=== PATIENT | male | born 1965 | race Caucasian/White ===

== ENCOUNTER → 2024-01-07 09:30 | Outpatient (REF) | payer OTHER, SELFPAY | LOC: HWRAD 09:30 | PROVIDERS: ATTENDING PHYSICIAN Nurse Practitioner | DX: E78.5 Hyperlipidemia, unspecified (principal); Z82.49 Family history of ischemic heart disease and other diseases of the circulatory system | CPT/HCPCS: 75571 ==

== ENCOUNTER → 2024-01-26 13:27 | Outpatient (REF) | payer OTHER, SELFPAY | LOC: HWRAD 13:27 | PROVIDERS: ATTENDING PHYSICIAN Internal Medicine Critical Care Medicine; FAMILY PHYSICIAN Nurse Practitioner | DX: R91.8 Other nonspecific abnormal finding of lung field (principal) | CPT/HCPCS: 71250 ==

== ENCOUNTER 2024-02-02 06:30 | Day surgery (SDC) | payer OTHER, SELFPAY ==
[2024-01-26 07:33] VITALS: BMI 26.9
[2024-01-26 08:40] LABS: Hematocrit 43.6 % (39.0-52.0); Hemoglobin 15.8 g/dL (13.0-18.0); Mean Corp Hgb Conc. 36.2 g/dL (33.0-37.0); Mean Corpuscular Hgb 31.5 pg (27.0-31.0); Mean Corpuscular Volume 86.9 fL (80.0-94.0); Mean Platelet Volume 9.7 fL (7.4-10.4); Platelet Count 185 10^3/uL (130-400); Red Blood Cell Count 5.02 10^6/uL (4.70-6.10); Red Cell Dist. Width 12.9 % (11.5-14.5); White Blood Cell Count 5.1 10^3/uL (4.8-10.8)
[2024-01-26 09:04] LABS: APTT 29.6 Sec (23.4-35.0)
[2024-01-26 09:11] LABS: Blood Urea Nitrogen 29 mg/dl (9-20); Calcium 9.4 mg/dl (8.4-10.2); Carbon Dioxide 26 mmol/L (22-30); Chloride 105 mmol/L (98-107); Estimated Creatinine Clearance 94 ml/min; Glucose 94 mg/dl (70-99); Potassium 4.1 mmol/L (3.5-5.1); Sodium 141 mmol/L (135-145); eGFR > 60.00
[2024-02-02] VITALS (10 sets, daily range): BP systolic 105–141; BP diastolic 65–83; BMI 26.9; BMI 27.1
== END 2024-02-02 14:04 | disposition home or self-care (01) ==
LOC: GI 06:30
PROVIDERS: ATTENDING PHYSICIAN Internal Medicine Critical Care Medicine; FAMILY PHYSICIAN Nurse Practitioner
DX: R91.8 Other nonspecific abnormal finding of lung field (principal); R93.89 Abnormal findings on diagnostic imaging of other specified body structures; Z87.891 Personal history of nicotine dependence
CPT/HCPCS: 31653; 31628; 31624; 31623; 31627; 31654; 31645; 88172; 88173; 88305; 36415; 71045; 76000; 80048; 85027; 85610; 85730; 87015; 87070; 87102; 87116; 87205; 88112; 88177; 88333; 93005; C1887

== ENCOUNTER 2024-06-23 07:53 | Inpatient (IN) | payer OTHER, SELFPAY ==
[2024-06-14 08:29] VITALS: BMI 27.9
[2024-06-14 09:02] LABS: Urine Albumin Negative (Neg - Trace); Urine Bilirubin Negative (Negative); Urine Character Clear (Clear); Urine Color Yellow; Urine Glucose Negative (Negative); Urine Ketone Negative (Negative); Urine Leukocyte Negative (Negative); Urine Nitrite Negative (Negative); Urine Occult Blood Negative (Negative); Urine Specific Gravity 1.015 (<1.030); Urine Urobilinogen Negative (Neg - 1+)
[2024-06-14 09:15] LABS: INR 1.08; PT 13.9 Sec (11.4-14.6)
[2024-06-14 09:22] LABS: % Basophils 0.8 % (0-2); % Eosinophils 2.9 % (0-6); % Immature Granulocytes 0.8 % (0-0.5); % Lymphocytes 33.5 % (20.5-51.1); % Monocytes 9.1 % (1.7-9.3); % Neutrophils 52.9 % (42.2-75.2); Absolute Eosinophils 0.2 10^3/uL (0-0.7); Absolute Lymphocytes 1.8 10^3/uL (1.2-3.4); Absolute Monocytes 0.5 10^3/uL (0.1-0.6); Absolute Neutrophils 2.8 10^3/uL (1.4-6.5); Hematocrit 42.9 % (39.0-52.0); Hemoglobin 15.8 g/dL (13.0-18.0); Mean Corp Hgb Conc. 36.8 g/dL (33.0-37.0); Mean Corpuscular Volume 86.8 fL (80.0-94.0); Mean Platelet Volume 9.9 fL (7.4-10.4); Nucleated Red Blood Cells % 0 % (-); Platelet Count 181 10^3/uL (130-400); Red Blood Cell Count 4.94 10^6/uL (4.70-6.10); White Blood Cell Count 5.3 10^3/uL (4.8-10.8)
--- NOTE | 2024-06-14 09:58 | CM ---
Chart reviewed. Met with the patient and his in PAT. Reviewed preoperative and postoperative instructions and restrictions, along with showering guidelines. Gave patient 2 soaps. 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 Patient is agreeable to a home visit by CT Transitional RN. Plan is for the patient to return home with CT Transitional RN.
[2024-06-14 11:14] LABS: ALT (SGPT) 34 U/L (0-50); AST (SGOT) 33 U/L (17-59); Albumin 4.6 g/dl (3.5-5.0); Alkaline Phosphatase 95 U/L (38-126); Blood Urea Nitrogen 18 mg/dl (9-20); Calcium 9.4 mg/dl (8.4-10.2); Carbon Dioxide 19 mmol/L (22-30); Chloride 105 mmol/L (98-107); Direct Bilirubin 0.2 mg/dl (0.0-0.4); Estimated Creatinine Clearance 91 ml/min; Glucose 108 mg/dl (70-99); Potassium 4.7 mmol/L (3.5-5.1); Sodium 139 mmol/L (135-145); Total Bilirubin 0.7 mg/dl (0.2-1.3); Total Protein 7.1 g/dl (6.3-8.2); eGFR > 60.00
[2024-06-14 12:26] LABS: Glycohemoglobin (HgbA1c) 4.9 % (4.0-5.6)
[2024-06-23] VITALS (14 sets, daily range): BP systolic 115–133; BP diastolic 75–88; BMI 27.1
--- NOTE | 2024-06-23 10:24 | CM ---
Patient in OR today for planned CT Surgery.
Reviewed initial assessment. Pt. resides in a split level home with spouse. Pt. is functionally indep. w/ ADLs, mobility without the use of any assisted device.
Antic. DC to home w/ CT Transitional Care RN.
CM to follow.
--- NOTE | 2024-06-23 10:50 | W.CVOR.SURPR ---
CVOR Surgeon Immed Pre Op
-
I have examined this patient prior to performance of the scheduled procedure.
The patient's condition is unchanged from the time of the dictated/written History and
Physical and the patient is able to undergo the scheduled procedure.
RATs RML biopsy if I can get to the central nodule. Otherwise will obtain biopsies of other nodules and send for frozen. After discussion with IR Dr. Dailey, we ultimately decided to not pursue IR needle localization as the central nodule is close
to multiple blood vessels, and biopsy of this central nodule would likely result in a right middle lobectomy. I will obtain samples of any obvious nodules in the RUL or RLL.
[2024-06-23] MEDS: ANCEF IV (11:20)
--- NOTE | 2024-06-23 13:05 | W.PN.CT.SURG ---
CT Surgery Operative Note
-
THORACIC SURGERY OPERATIVE REPORT
Preoperative Diagnosis: Multiple bilateral pulmonary nodules incidentally found
Postoperative Diagnosis: Same, plus pleural implants, pericardial fat implants, diaphragmatic implants
Procedure(s) Performed:
1. Robotic assisted thoracic surgery [RATS] diagnostic wedge resection of the right upper, right middle, and right lower lobes
2. Additional pleural implant biopsy, additional pericardial fat implant biopsy
3. Intercostal nerve block with mepivacaine mixture into spaces 5, 6, 7, 8 with 5cc/each
4. Cryonerve ablation to intercostal nerve spaces 5, 6, 7, 8 with 2mins of freeze each
5. Intraoperative frozen section
Date of Surgery: 06/24/2024
Comorbidities:
1. History of a arachnoid cyst
2. Multiple pulmonary nodules
3. Possible occupational exposure to dust, animal droppings, animal feathers, etc.
4. Family history of prostate cancer
5. Cigar smoking 4-5 times a month for a total of 30 years
Attending Surgeon: Gregorio Pineda MD, MS
Assistants: Gregorio Carr PA-C (present and necessary to cosmetic sales assistant, exchanging robotic instruments, retraction, suction, exposure, suture management, and wound closure under my direction)
Anesthesiology: Carlos Pearson MD and Ya Mason CRNA
Scrub and Circulating RNs: Xenia Lopez RN, Coral Barone RN
Anesthesia: Dual Lumen GETA
EBL: 20 cc
Products: None
Indication(s) for Procedures: This is a 59-year-old male with bilateral pulmonary nodules seen on calcium scoring CT scan in December 2023. He had a slightly larger nodule that was 1.4 cm in the right middle lobe he also had bilateral mediastinal
lymphadenopathy is concerning. From a smoking history of 4 to 5 cigars a month for 30 years. PET/CT imaging was concerning for metastatic disease as there was delayed phase FDG avidity. He also had some mediastinal node uptake and activity that
was concerning. He was referred here for diagnostic wedge resection of the right middle lobe nodule that was deep in the central portion and hard to get to.
Findings: Diffuse and innumerable implants on the right upper, middle, and lower lobes. Additional implants were found onto the parietal pleura and mediastinal fat as well as the diaphragm. Wedge resection was performed of all 3 lobes and sent off
for pathology. Frozen section the operating room was inconclusive for any cancer. Additional implants seen in the pleura was taken for sample as well as any pericardial fat implants. There is no air leak at the conclusion of the case and no loss
of tidal volume.
Specimen(s):
Wedge resection of the right upper, middle, and lower lobes
Pericardial fat sample, pleural implant sample
Description of Procedure: The patient was taken to the operating room. Induction via general anesthesia with endotracheal intubation was performed and peripheral venous access and arterial monitoring were inserted. Their identity and procedure to be
performed were verified and they were positioned with the right side up on the operating table. The patient was then prepped and draped in a sterile fashion. A preoperative time-out was performed with all members of the team present. A Veress
needle was used to insufflate the chest after isolating the lung. An 8 mm port was placed in the midaxillary line at approximately the eighth intercostal space and confirmed to be intrathoracic without significant pulmonary injury. The chest was
surveyed for any evidence of metastatic disease. Patient tolerate insufflation without complication. 1 additional 12 mm trocars were placed on anterior side along with 2 additional 8 mm trocars towards the patient's back. A 12 mm surveyor's assistant port
was placed in the 11th intercostal space above the insertion of the diaphragm. An intercostal nerve block was performed at intercostal spaces 5 through 8.
The thoracic cavity was inspected for evidence of metastatic disease. There were multiple implants that were innumerable mostly on the upper, middle and lower lobes of the lung, few implants were also seen on the parietal pleura and along the
pericardial fat and diaphragm. Wedge resections were performed of the lower, middle, and upper lobes using green load staple fires. Any implants on the pericardial fat and pleura were also taken for frozen section after being extracted from the
chest cavity. Frozen section came back as inconclusive at this time, possible inflammatory, possible scarring but no elaine cancer cells were seen. CoSeal was used to coat all 3 staple lines. After confirming hemostasis, the lung was fully
inflated and all ports were removed. Incisions were closed in 3 layers including the fascia, dermal, and epidermis. Additional local anesthesia was injected into all incision sites. The skin wound was cleansed and sealed with Dermabond glue.
All instrument, sponge, and needle counts were confirmed to be correct x 2 at the end of the operation. The patient was transferred to the cardiac intensive care unit extubated in critical but stable condition.
I, Dr. Gregorio Pineda, was present, scrubbed for, and performed all critical elements of this procedure.
Gregorio Pineda MD, MS
Cardiothoracic Surgeon
[facility]
This operative dictation was created using the [employer] dictation system. Please excuse any grammatical, typographical, or 'sound alike' errors
[2024-06-23] MEDS: DILAUDID 0.25 MG IV (13:18)
--- NOTE | 2024-06-23 13:20 | W.PN.CT.PHOT ---
JENNIFER Photos
-
Photos:
[2024-06-23] MEDS: DILAUDID 0.5 MG IV ×3 (13:29→19:49)
--- NOTE | 2024-06-23 13:45 | PTCARENOTE ---
Report received from pacu. Patient received status post right VATS etc multiple nodules bx/lymph node bx. Patient has left radial art line. NSR 2l nasal canula. NSR. 2L nasal canula. Right posterior chest tube to water seal as per order. No air
leak. See flowrecord for pain management treatment and remaining assessments.
[2024-06-23] MEDS: ANCEF 10 IV (14:23)
[2024-06-23] MEDS: NEURONTIN 100 MG PO ×2 (15:41→21:12)
[2024-06-23] MEDS: FLEXERIL 5 MG PO (15:41)
[2024-06-23] MEDS: ROXICODONE 5 MG PO ×2 (15:42→19:50)
[2024-06-23] MEDS: TYLENOL PO (15:45)
[2024-06-23] MEDS: ZOFRAN 4 MG IV ×2 (15:59→18:28)
[2024-06-23] MEDS: TORADOL 15 MG IV ×2 (16:25→22:25)
[2024-06-23] MEDS: ANCEF 5 IV (17:56)
--- NOTE | 2024-06-23 18:00 | PTCARENOTE ---
OOB to bathroom. Ambulated in room. Room air. No 'dumping' or air leak from right post chest tube to H2) water seal. NSR.
--- NOTE | 2024-06-23 19:00 | PTCARENOTE ---
report received from previous RN, walking rounds done. pt in chair, at bedside. pt c/o 10/10 incisional pain. PRN meds given as ordered. VSS. NSR on monitor, HR 70s. POX 95% on room air. IS encouraged. CT x1 to water seal, drainage WNL, no air
leak present. pt assisted to BR to void. now back to bed and resting comfortably. all surgical sites stable. see worklist for full assessment, VS, and interventions.
[2024-06-23] MEDS: LOPRESSOR 12.5 MG PO (19:50)
[2024-06-23] MEDS: SENOKOT 8.6 MG PO (19:50)
[2024-06-23] MEDS: TYLENOL 1000 MG PO (21:11)
[2024-06-24 00:40] VITALS: BP 107/61
[2024-06-24] MEDS: ANCEF 5 IV ×2 (02:01→09:37)
[2024-06-24] MEDS: TORADOL 15 MG IV ×2 (04:01→08:43)
[2024-06-24] MEDS: TYLENOL 1000 MG PO (05:01)
[2024-06-24 05:03] VITALS: BMI 27.3
[2024-06-24 05:30] VITALS: BP 117/68
--- NOTE | 2024-06-24 05:30 | PTCARENOTE ---
no changes in assessment, pt VSS.
[2024-06-24 05:51] LABS: Hematocrit 38.2 % (39.0-52.0); Hemoglobin 14.2 g/dL (13.0-18.0); Mean Corp Hgb Conc. 37.2 g/dL (33.0-37.0); Mean Corpuscular Hgb 31.8 pg (27.0-31.0); Mean Corpuscular Volume 85.5 fL (80.0-94.0); Mean Platelet Volume 9.6 fL (7.4-10.4); Platelet Count 196 10^3/uL (130-400); Red Blood Cell Count 4.47 10^6/uL (4.70-6.10); Red Cell Dist. Width 12.1 % (11.5-14.5); White Blood Cell Count 9.6 10^3/uL (4.8-10.8)
--- NOTE | 2024-06-24 06:06 | W.PN.CT ---
Today's Communication / Plan
-
-pod #1
-no issues overnight
-R pleural CT on water seal since OR, no air leak, put out 35 in 12/24 hrs
-BMP pending
-follow daily CXR
-encourage IS, OOB
Assessment / Plan
-
- Multiple bilateral pulmonary nodules incidentally found- s/p Robotic assisted thoracic surgery [RATS] diagnostic wedge resection of the right upper, right middle, and right lower lobes; additional pleural implant biopsy, additional pericardial fat
implant biopsy on 06/23/[address] Pineda, pod #1
- Frozen section came back as inconclusive at this time, possible inflammatory, possible scarring but no elaine cancer cells were seen.
- History of a arachnoid cyst
- Multiple pulmonary nodules with bilateral mediastinal lymphadenopathy
- Possible occupational exposure to dust, animal droppings, animal feathers, etc.
- Family history of prostate cancer
- Cigar smoking 4-5 times a month for a total of 30 years
- Acute postop blood loss atelectasis
Discussed patient care with: Nursing and Care Team
Subjective
-
Date of Service: June 24, 2024
Objective Data
-
PT 13.9 Sec (11.4-14.6) 06/14/24 08:38
INR 1.08 06/14/24 08:38
APTT 29.0 Sec (23.4-35.0) 06/14/24 08:38
Vital Signs
Vital Signs
Temp Pulse Resp BP Pulse Ox
98.0 F 81 18 115/75 95
06/23/24 19:55 06/23/24 21:00 06/23/24 19:55 06/23/24 19:55 06/23/24 20:00
CT Intake/Output/Weight
06/23/24 06/23/24 06/24/24
06:59 18:59 06:59
Intake Total 380 / 630 250 / 630
Output Total 60 / 70 10 / 70
Balance 320 / 560 240 / 560
SaO2: 95
Physical Exam
-
General: Awake and AOx3
Cardiovascular: Regular rate & rhythm, No Murmurs and No Rub
Respiratory: Rales (on R) and Decreased Breath Sounds
Incision: Clean, Dry and Dressing Intact
Extremities: No Edema
Data Reviewed
-
Lab Results: Results Reviewed
Medications: Active Meds Reviewed
Chest X-Ray: Report Reviewed and Image Reviewed
ECG: Report Reviewed and Image Reviewed
[2024-06-24 06:13] LABS: Blood Urea Nitrogen 26 mg/dl (9-20); Calcium 8.8 mg/dl (8.4-10.2); Carbon Dioxide 23 mmol/L (22-30); Chloride 102 mmol/L (98-107); Estimated Creatinine Clearance 91 ml/min; Glucose 109 mg/dl (70-99); Potassium 4.3 mmol/L (3.5-5.1); Sodium 139 mmol/L (135-145); eGFR > 60.00
--- NOTE | 2024-06-24 08:24 | PTCARENOTE ---
assumed care of pt from previous shift RN, Sinus rhythm on tele, VSS, + peripheral pulses, no edema noted. Lungs diminished, pox 92% on RA, coughing and deep breathing encouraged. +bs, tolerating PO intake, voids spontaneously, adequate. PIV flushes
easily. Surgical sites w glue intact, pleural ct to water seal without air leak or crepitus. plan of care reviewed and questions encouraged.
[2024-06-24] MEDS: LOPRESSOR 12.5 MG PO (08:43)
[2024-06-24] MEDS: NEURONTIN 100 MG PO (08:44)
[2024-06-24] MEDS: LIDOCAINE 4% PATCH 1 PATCH TOPICAL (08:44)
[2024-06-24] MEDS: SENOKOT 8.6 MG PO (08:44)
[2024-06-24] MEDS: LIPITOR 20 MG PO (08:44)
[2024-06-24 08:48] VITALS: BP 122/70
[2024-06-24 09:48] VITALS: BP 108/71
--- NOTE | 2024-06-24 09:55 | W.PN.UPDATE ---
Update Note
Progress Note Update
Right CT D/Cd by me without difficulty. Patient tolerated well. Suture tied and dressing applied. Pulling ~2000 on IS post pull. Will order PCXR.
--- NOTE | 2024-06-24 11:00 | W.DCSUMMARY ---
Discharge Summary
Discharge Data
Date of Admission: 06/23/24
Date of Discharge: 06/24/24
Total time spent discharging patient (in min): 35
-
Pending Results: No
Hospital Course
Primary care physician:
Dr. Rosa Lawson
Outpatient Pulmonlogist:
Dr. Valentino Bean
Inpatient consultants:
None
Procedures:
1. Robotic assisted thoracic surgery [RATS] diagnostic wedge resection of the right upper, right middle, and right lower lobes
Primary Diagnosis:
1. Multiple bilateral pulmonary nodules incidentally found
Secondary Diagnoses:
1. History of a arachnoid cyst
2. Multiple pulmonary nodules
3. Possible occupational exposure to dust, animal droppings, animal feathers, etc.
4. Family history of prostate cancer
5. Cigar smoking 4-5 times a month for a total of 30 years
HPI: 59-year-old male with bilateral pulmonary nodules seen on calcium scoring CT scan in December 2023. He had a slightly larger nodule that was 1.4 cm in the right middle lobe he also had bilateral mediastinal lymphadenopathy is concerning. From a
smoking history of 4 to 5 cigars a month for 30 years. PET/CT imaging was concerning for metastatic disease as there was delayed phase FDG avidity. He also had some mediastinal node uptake and activity that was concerning. He was referred here
for diagnostic wedge resection of the right middle lobe nodule that was deep in the central portion and hard to get to. He presented electively on 06/23 for wedge resection by Dr. Pineda.
Hospital course: Patient was electively admitted on 06/23. Postprocedure patient returned to the PACU for recovery and then the CVICU. Chest tube was placed on waterseal due to no airleak. Arterial line was removed. Patient was started on IV
Toradol due to pain. On 06/24 postoperative day #1, patient's chest tube was removed. Post pull chest x-ray showed a trace pneumothorax. Repeat chest x-ray 4 hours later showed that the pneumothorax was stable. He was deemed stable for discharge
with follow-up in the CT office. Remaining stitch will be removed by our visiting nurses.
Home medication changes:
See below
Discharge Plan
-
Patient Disposition: Home (Routine Discharge)
Discharge Diagnosis/Procedures: Wedge resections were performed of the lower, middle, and upper lobes
Condition: Good
Diet: Regular
Activity: No strenuous activity
Driving Restrictions: No driving for 2 weeks
Bathing Restrictions: OK to Shower
Specialty Instructions: Weigh Daily- Call MD for wt gain/loss 3 lbs overnight/5 lbs in 1 week
Activity Restrictions/Additional Instructions:
ACTIVITY:
-No strenuous activity
-continue to use stairs as tolerated
DRIVING RESTRICTIONS:
-No driving for 2 weeks or until no longer taking narcotics
WOUND CARE:
-Shower daily. Use soap & water.
-No lotions, creams or powders on incision area.
DIET:
-continue a low fat/low cholesterol diet.
Referrals:
CT Transitional Care Nurse [Outside] (The Cardiothoracic Transitional Care Nurse will call you to set up a visit in 1-2 days.)
Rosa Lawson MD [Family Provider] -
Gregorio Pineda MD [Active] - 07/14/24 3:00 pm
Additional Discharge Medication Instructions: DO NOT DRIVE UNTIL YOU ARE NO TAKING NARCOTICS!!!!!
You are on lopressor post-op for one month for heart rate control.
Prescriptions:
New
cyclobenzaprine 10 mg Tablet
5 mg PO Q8HPRN PRN (Reason: muscle spasm) Qty: 30 0RF
acetaminophen 325 mg Tablet
650 mg PO Q4HPRN PRN (Reason: mild pain,headache,temp >101F ) Qty: 0 0RF
metoprolol tartrate 25 mg Tablet
12.5 mg PO BID Qty: 60 0RF
gabapentin 100 mg Capsule
100 mg PO TID Qty: 30 0RF
oxycodone 5 mg Tablet
2.5 mg PO Q4HPRN PRN (Reason: Severe pain) Qty: 10 0RF
Continued
atorvastatin 20 mg Tablet
20 mg PO DAILY
Held
ibuprofen 200 mg Capsule
200 mg PO PRN PRN (Reason: pain)
Hold Instructions: Resume on 07/08/24.
Discharge Orders:
Discharge Patient (As Directed); Ordered 06/24/24
Ordered By: Pamela Vargas
Care Plan Goals
Care Plan Goals:
Problem: Readiness for enhanced knowledge related to diagnosis and treatment plan
Goal: Understand your diagnosis and treatment plan needs, including medications if applicable.
Instructions: Know your diagnosis, underlying causes and treatment plan options, including medications if applicable. Consult with your health care team to learn about your diagnosis and treatment plan, including medications if applicable.
Discharge Date and Time
Print Language: TAIWANESE
--- NOTE | 2024-06-24 11:42 | CM ---
CM following for DC planning needs.
Pt. for DC to home today. He is POD#[address] Lung Sx[address]
Met w/ patient, spouse at bedside. Reviewed DC plan for home w/ CT Transitional Care RN.
No other needs identified.
[2024-06-24 12:30] VITALS: BP 111/78
[2024-06-24] MEDS: TYLENOL PO (15:29)
== END 2024-06-24 15:30 | disposition home or self-care (01) | DRG 165 ==
LOC: CVICU 07:53
PROVIDERS: Physician Assistant Surgical; ADMITTING PHYSICIAN Thoracic Surgery (Cardiothoracic Vascular Surgery); FAMILY PHYSICIAN Internal Medicine
PROC: 0BTC4ZZ Resection of Right Upper Lung Lobe, Percutaneous Endoscopic Approach (ICD-10-PCS; 2024-06-23)
PROC: 0BBN4ZX Excision of Right Pleura, Percutaneous Endoscopic Approach, Diagnostic (ICD-10-PCS; 2024-06-23)
PROC: 02BN4ZX Excision of Pericardium, Percutaneous Endoscopic Approach, Diagnostic (ICD-10-PCS; 2024-06-23)
PROC: 0BTD4ZZ Resection of Right Middle Lung Lobe, Percutaneous Endoscopic Approach (ICD-10-PCS; 2024-06-23)
PROC: 0BTF4ZZ Resection of Right Lower Lung Lobe, Percutaneous Endoscopic Approach (ICD-10-PCS; 2024-06-23)
DX: J84.10 Pulmonary fibrosis, unspecified (principal); R91.8 Other nonspecific abnormal finding of lung field; F17.290 Nicotine dependence, other tobacco product, uncomplicated; R59.0 Localized enlarged lymph nodes; Z79.899 Other long term (current) drug therapy; Z80.42 Family history of malignant neoplasm of prostate
CPT/HCPCS: 88305; 88307; 88312; 88332; 32505; 36415; 71045; 80048; 80053; 81003; 82248; 83036; 83735; 85025; 85027; 85610; 85730; 86850; 86900; 86901; 87070; 88331; 93005

== ENCOUNTER → 2024-07-05 11:28 | Outpatient (REF) | payer OTHER, SELFPAY | LOC: RAD 11:28 | PROVIDERS: ATTENDING PHYSICIAN Thoracic Surgery (Cardiothoracic Vascular Surgery); FAMILY PHYSICIAN Nurse Practitioner | DX: R19.00 Intra-abdominal and pelvic swelling, mass and lump, unspecified site (principal); R10.11 Right upper quadrant pain; Z98.890 Other specified postprocedural states | CPT/HCPCS: 71046; 76705 ==

== ENCOUNTER → 2025-06-01 09:40 | Outpatient (REF) | payer OTHER, SELFPAY | LOC: HWRAD 09:40 | PROVIDERS: ATTENDING PHYSICIAN Internal Medicine Critical Care Medicine; FAMILY PHYSICIAN Nurse Practitioner | DX: R91.8 Other nonspecific abnormal finding of lung field (principal) | CPT/HCPCS: 71250 ==